=== PATIENT | female | born 1990 | race Caucasian/White ===

== ENCOUNTER 2017-03-08 18:15 | Emergency (ER) | payer OTHER ==
[~2017-03-08] VITALS: Ht 166.4 cm; Wt 88.6 kg
[~2017-03-08 18:15] MED LIST: ALBU8.5H2 INHALATION; CEPH-512 PO; CEPH500C PO; NAPR500T PO; PRE20 PO; SYMINH INHALATION; TAM75UDCAP PO
[2017-03-08 18:18] VITALS: BP 118/80; PULSE 105; RESP 16; O2SAT 98
[2017-03-08] MEDS ORDERED: Ondansetron 2 mg/mL 2 mL Inj ONE (18:37)
[2017-03-08 18:42] LABS: BASOPHILS % (AUTO) 0.1 % (0-3); EOSINOPHILS % (AUTO) 0.4 % (0-5); MONOCYTES % (AUTO) 3.9 % (4-12); Mean Corpuscular Hemoglobin 29.4 pg (27.0-35.0); Mean Corpuscular Volume 86.1 fL (81-100); NEUTROPHILS % (AUTO) 88.8 % (40-74); Platelet Count 263 bil/L (150-400)
[2017-03-08 19:05] LABS: Magnesium 1.8 mg/dL (1.6-2.6)
--- NOTE | 2017-03-08 19:45 | ED.REPORT ---
HPI-General Illness Date of Service Mar 08, 2017 ED Provider: Eber Arshad MD The patient is a 26 year old female who is 9 weeks () presenting to the ED complaining of nausea and vomiting for the past 24 hours. She also admits to diarrhea, and some associated lightheadedness during vomiting episodes , but she feels better when she is subsequently laying down. No abdominal pain whatsoever. She denies any other associated symptoms of note at this time, including no fever, no vaginal bleeding, chills, diaphoresis, abdominal pain, chest pain, SOB, vertigo, vision changes, dysuria, numbness or tingling, or headache. Nursing Notes Stated Complaint: VOMITING, DIAHRREA 24 HRS FAINTING/DIZZINESS Chief Complaint: Female Abdominal Pain Nursing Notes Reviewed: Yes Allergies: Coded Allergies: No Known Allergies (Verified Allergy, Unknown, 03/08/17) Scheduled Budesonide/Formoterol 160-4.5 mcg Inh (Symbicort 160-4.5 mcg Inh) 120 Puff Inhaler 1 PUFF INHALATION BID Cephalexin (Keflex) 500 Mg Capsule 500 MG PO QID Cephalexin (Cephalexin) 500 Mg Capsule 500 MG PO QID Oseltamivir Phosphate (Tamiflu) 75 Mg Capsule 75 MG PO BID Prednisone (PredniSONE) 20 Mg Tablet 40 MG PO DAILY Scheduled PRN Albuterol HFA (Proair HFA) 8.5 Gm Hfa.aer.ad 2 PUFFS INHALATION Q4H PRN PRN For Shortness of Breath Naproxen (Naprosyn) 500 Mg Tablet 500 MG PO BID PRN PRN For Pain General Time Seen by MD: 19:39 Chief Complaint Vomiting Hx Obtained From: Patient Arrived By: Walk-in Sudden in Onset?: Yes Onset Occurred: Yesterday (20:00) Symptom Duration: Since onset Associated with: Reports: Nausea, Vomiting, Denies: Abdominal pain, Diaphoresis, Headache Pertinent Negative: Pt denies other symptoms Recent Healthcare: No recent hospitalization, Recent doctor visit Similar Sx Previous: Yes Past Medical History Past Medical History Notes: PCP: Dr. Filomena Martínez Past Medical History Kidney stones Reports: Asthma, COPD Past Surgical History None reported. Smoking History Current Every Day Smoker Social History Other Social History: Good social support, Local resident Ambulatory Status Independent Review of Systems Denies vertigo Full Review of Systems Constitutional: Denies: Chills, Fever Eyes: Denies: Visual loss bilateral Respiratory: Denies: Shortness of breath Cardiovascular: Denies: Chest pain GI: Reports: Diarrhea, Nausea, Vomiting, Denies: Abdominal pain Female: Denies: Dysuria, Vaginal bleeding - abnl Skin: Denies Diaphoresis Neurologic: Denies: Headache Complete sys rev & neg: except as marked. Physical Exam Nursing note and vitals reviewed. Constitutional: Well-developed, well-nourished. Not diaphoretic. Head: Normocephalic and atraumatic. Mouth/Throat: Oropharynx is clear and moist. No oropharyngeal exudate. Eyes: EOM are normal. Pupils are equal, round, and reactive to light. Neck: Supple, no tracheal deviation. Cardiovascular: Normal rate, regular rhythm. Equal and intact distal pulses throughout. Pulmonary/Chest: Effort normal and breath sounds normal. No respiratory distress. Abdominal: Soft. No distension. There is no tenderness, rebound, or guarding. Bowel sounds present. Musculoskeletal: Range of motion grossly intact, moving all extremities. No edema or tenderness appreciated. Neurological: AOx3. Grossly nonfocal exam. Strength and sensation intact and equal to bilateral upper and lower extremities. Skin: Warm and dry, no rashes or pallor appreciated. Psychiatric: Appropriate mood and affect. Behavior appears normal. Vital Signs Vital Signs Date Time Temp Pulse Resp B/P Pulse Ox O2 Delivery O2 Flow Rate FiO2 03/09/17 00:18 75 16 103/65 99 Room Air 03/08/17 23:16 75 16 103/65 99 Room Air 03/08/17 18:18 36.6 105 16 118/80 98 Room Air Interpretation & Diagnostics Lab Results Interpretation Result Diagram: 03/08/17 1830 03/08/17 1830 Test 03/08/17 18:30 03/08/17 20:51 White Blood Count 13.4th/mm3 (3.8-10.1) Red Blood Count 5.03mil/mm3 (3.90-5.20) Hemoglobin 14.8g/dL (12.0-15.6) Hematocrit 43.3% (35.0-46.0) Mean Corpuscular Volume 86.1fL (81-100) Mean Corpuscular Hemoglobin 29.4pg (27.0-35.0) Mean Corpuscular Hemoglobin Concent 34.2% (32.0-37.0) Red Cell Distribution Width 13.6% (12.3-15.4) Platelet Count 263bil/L (150-400) Neutrophils (%) (Auto) 88.8% (40-74) Lymphocytes (%) (Auto) 6.4% (14-46) Monocytes (%) (Auto) 3.9% (4-12) Eosinophils (%) (Auto) 0.4% (0-5) Basophils (%) (Auto) 0.1% (0-3) Prothrombin Time 10.4sec (8.1-12.5) Prothromb Time International Ratio 0.97ratio Sodium Level 131mEq/L (134-144) Potassium Level 3.8mEq/L (3.5-5.2) Chloride Level 97mEq/L (97-108) Carbon Dioxide Level 19mmol/L (18-29) Blood Urea Nitrogen 7mg/dL (6-20) Creatinine 0.56mg/dL (0.57-1.00) Estimat Glomerular Filtration Rate 189mL/min (>59) Glucose Level 93mg/dL (60-99) Calcium Level 9.2mg/dL (8.5-10.1) Magnesium Level 1.8mg/dL (1.6-2.6) Total Bilirubin 1.5mg/dL (0.0-1.2) Aspartate Amino Transf (AST/SGOT) 20U/L (0-50) Alanine Aminotransferase (ALT/SGPT) 18U/L (0-32) Alkaline Phosphatase 84U/L (25-150) Total Protein 7.6g/dL (6.4-8.4) Albumin 4.2g/dL (3.4-5.0) Lipase 28U/L (13-60) Hold Kumar Top Tube Received (Received) Hold Urine Received (Received) ECG Interpretation Time: 23:13 Interpreted by: ED physician Normal ECG Interpretation: Normal ECG w/ rate of... (74), Normal sinus rhythm, No acute ischemic changes Re-Eval/Medical Decision Med Decision/Clinical Course 26-year-old female at approximately 9 weeks gestation presenting to the ED for evaluation of nausea, vomiting, and diarrhea over the past 24 hours. No abdominal pain whatsoever, nor tenderness on examination. Currently afebrile with vital signs here grossly within normal limits on my evaluation. No reason to suggest ectopic or other acute intra-abdominal/intrapelvic abnormality with no abdominal pain at all. Patient given Zofran, IV fluids here in the ED with marked improvement in symptoms. Laboratory studies notable for a white blood cell count of 13.4 with no bandemia, sodium of 131, bilirubin of 1.5. Because she was feeling lightheaded when she was vomiting earlier, an EKG was obtained; this did not demonstrate any acute abnormalities, normal intervals. She has no right upper quadrant tenderness to palpation, negative Ortiz's sign. Unclear why her bilirubin is mildly elevated at 1.5, however I would like her to be reassessed in the next 1-2 days as this will need to be rechecked. We discussed performing an ultrasound here in the ED, however I do not feel like this is necessary at this time and the patient agrees. Plan discharge home with very careful return precautions, PCP follow-up tomorrow. Patient agreeable to the plan as stated, no further questions. Time of Eval: 00:03 Patient Status: Condition improved Re-Evaluation/Progress Note: Patient is rechecked. She is informed of her reassuring results and the plan to discharge with close follow up. Strict return precautions are given. All questions are addressed at this time. Counseled Regarding: Diagnosis, Lab results, Need for follow-up, When/why to return to ED Discharge & Departure Primary Impression: Nausea and vomiting in Additional Impression: Diarrhea Diarrhea type: unspecified type Qualified Code: R19.7 - Diarrhea, unspecified Disposition: Home Discharge Condition All VS Reviewed: Yes Condition: Improved Patient Instructions: Acute Diarrhea (ED), Acute Nausea and Vomiting (ED), (ED) Additional Instructions: Thank you for trusting us with your care this afternoon. Your emergency department evaluation today including examination, EKG and lab work are reassuring that there is no emergent cause for concern at this time that would require admission to the hospital. However, your bilirubin was mildly elevated and this needs to be followed up as discussed. Schedule a follow up appointment with your primary care physician or OB tomorrow for a recheck. Please return to the emergency department for any new or worsening conditions including any abdominal pain, nausea, vomiting, fever, chills, shortness of breath, chest pain, or symptoms of concern to you. Referrals: Yayo Martínez MD (PCP) Scribe Attestation Portions of this note were transcribed by Eren Contreras. I, Dr. Arshad, personally performed the history, physical exam and medical decision-making; I reviewed and confirmed the accuracy of the information in the transcribed note. Signed by: John Crury, 03/08/17. copies to: Yayo Martínez MD, William B MD Mar 08, 2017 19:45 Mar 08, 2017 22:43 EREN CONTRERAS Mar 08, 2017 23:39
[2017-03-08] MEDS ORDERED: 0.9% Sodium Chloride 1,000 ML IV ONE (22:40)
[2017-03-08 22:54] LABS: INR 0.97 ratio
[2017-03-08 23:16] VITALS: BP 103/65; PULSE 75; RESP 16; O2SAT 99
[2017-03-09 00:18] VITALS: BP 103/65; PULSE 75; RESP 16; O2SAT 99
[2017-03-09] MEDS ORDERED: 0.9% Sodium Chloride 1,000 ML IV ONE (00:25)
== END 2017-03-09 00:25 | disposition home or self-care (01) ==
LOC: SED 18:15
DX: O21.0 Mild hyperemesis gravidarum (principal); R19.7 Diarrhea, unspecified; J44.9 Chronic obstructive pulmonary disease, unspecified; F17.200 Nicotine dependence, unspecified, uncomplicated; Z3A.09 9 weeks gestation of pregnancy; Z87.442 Personal history of urinary calculi
CPT/HCPCS: 36415; 80053; 81025; 83690; 83735; 85025; 85610; 93005; 96361; 96374; 99284; J2405; J7030